=== PATIENT | female | born 1950 | race Caucasian/White ===

== ENCOUNTER → 2020-11-17 | Outpatient (CLI) | payer MEDICARE, OTHER ==
[~2020-11-17] MED LIST: AMLO-257 PO; ASPI-556 PO; BENA40TA9 PO
== END | disposition home or self-care (01) ==
LOC: RAH 14:07
PROVIDERS: ATTEND Orthopaedic Surgery
DX: S83.242A Other tear of medial meniscus, current injury, left knee, initial encounter (principal); M17.12 Unilateral primary osteoarthritis, left knee; M25.462 Effusion, left knee; X58.XXXA Exposure to other specified factors, initial encounter; Y93.89 Activity, other specified; Y92.89 Other specified places as the place of occurrence of the external cause; Y99.8 Other external cause status
CPT/HCPCS: 73721

== ENCOUNTER → 2021-06-17 | Outpatient (CLI) | payer MEDICARE, OTHER ==
[2021-06-17 08:23] LABS: BASOPHILS % (AUTO) 0.6 % (0.0-5.0); HEMATOCRIT 40.7 % (36-48); LYMPHOCYTES % (AUTO) 21.9 % (21.0-51.0); MEAN CORPUSCULAR HEMOGLOBIN 29.1 pg (27.0-33.0); MEAN CORPUSCULAR HGB CONC 31.9 g/dL (32.0-36.0); MEAN CORPUSCULAR VOLUME 91.3 fL (79-99); MONOCYTES % (AUTO) 10.4 % (3.0-13.0); NEUTROPHILS % (AUTO) 63.8 % (40.0-77.0); PLATELET COUNT (AUTO) 245 K/uL (130-400); RED BLOOD CELL COUNT(AUTO) 4.46 MIL/uL (4.00-5.50); RED CELL DISTRIBUTION WIDTH 12.6 % (11.0-15.5); WHITE BLOOD COUNT (AUTO) 6.7 K/uL (4.8-10.8)
[2021-06-17 08:39] LABS: ALBUMIN 3.7 g/dL (3.5-5.0); BILIRUBIN,DIRECT 0.1 mg/dL (0.0-0.3); BILIRUBIN,TOTAL 0.5 mg/dL (0.2-1.0); CREATININE 0.8 mg/dL (0.5-1.5); POTASSIUM 4.1 mmol/L (3.5-5.1)
== END | disposition home or self-care (01) ==
LOC: LAB 07:36
PROVIDERS: ATTEND Dermatology
DX: I10 Essential (primary) hypertension (principal); E78.00 Pure hypercholesterolemia, unspecified; D64.9 Anemia, unspecified; Z79.899 Other long term (current) drug therapy
CPT/HCPCS: 36415; 80048; 80061; 80076; 85025

== ENCOUNTER 2021-12-01 19:24 | Emergency (ER) | payer MEDICARE, OTHER ==
[~2021-12-01] VITALS: Ht 167.6 cm; Wt 73.9 kg
[~2021-12-01 19:24] MED LIST changes: -BENA40TA9 PO; +BENA40TA92 PO
[2021-12-01] MEDS ORDERED: IBUPROFEN 600 MG TABLET PO ONE (20:00)
[2021-12-01] MEDS ORDERED: IBUPROFEN 400 MG TABLET ONE (21:02)
[2021-12-01] MEDS ORDERED: IBUPROFEN 200 MG TAB ONE (21:02)
[2021-12-01] MEDS ORDERED: IBUP-2070 PO (21:26)
[2021-12-01 21:30] VITALS: BP 132/96
== END 2021-12-01 21:57 | disposition home or self-care (01) ==
LOC: EDH 19:24
DX: M25.562 Pain in left knee (principal); E78.00 Pure hypercholesterolemia, unspecified; Z79.1 Long term (current) use of non-steroidal anti-inflammatories (NSAID); Z79.82 Long term (current) use of aspirin; Z85.42 Personal history of malignant neoplasm of other parts of uterus; W18.39XA Other fall on same level, initial encounter; Y93.01 Activity, walking, marching and hiking; Y92.89 Other specified places as the place of occurrence of the external cause; Y99.8 Other external cause status
CPT/HCPCS: 29505; 73562

== ENCOUNTER → 2024-11-17 | Outpatient (CLI) | payer MEDICARE, OTHER ==
[~2024-11-17] MED LIST changes: +IBUP-2070 PO
--- NOTE | 2024-11-17 09:28 | HMCIMG ---
CHEST 1VW HISTORY: Heart failure COMPARISON: None FINDINGS: A frontal projection of the chest was obtained. No acute pulmonary infiltrates is seen. The heart is borderline enlarged. Aortic calcifications are seen. Degenerative changes are seen. IMPRESSION: 1. No acute pulmonary infiltrate is seen.
--- NOTE | 2024-11-17 09:59 | HMCIMG ---
US VENOUS DOPPLER BILATERAL HISTORY: DVT COMPARISON: 06/16/2021 TECHNIQUE: Bilateral lower extremity venous Doppler ultrasound study was performed. FINDINGS: The common femoral, femoral, popliteal, and posterior tibial veins are visualized. Normal flow with augmentation and compressibilities are demonstrated. The greater saphenous veins are also seen and grossly patent. IMPRESSION: 1. No evidence of deep venous thrombosis is seen.
== END | disposition home or self-care (01) ==
LOC: RAH 08:22
PROVIDERS: ATTEND Dermatology
DX: I82.403 Acute embolism and thrombosis of unspecified deep veins of lower extremity, bilateral (principal); I82.623 Acute embolism and thrombosis of deep veins of upper extremity, bilateral; I50.9 Heart failure, unspecified; I70.0 Atherosclerosis of aorta; M47.814 Spondylosis without myelopathy or radiculopathy, thoracic region; R06.00 Dyspnea, unspecified
CPT/HCPCS: 71045; 93970